=== PATIENT | female | born 1950 | race Caucasian/White ===

== ENCOUNTER 2018-07-03 05:52 | Observation (INO) | payer OTHER, MEDICARE ==
[~2018-07-03] VITALS: Ht 157.5 cm; Wt 94.3 kg
--- NOTE | 2018-07-03 06:16 | ED CARDIAC/CP/PALPITATIONS ---
History of Present Illness General Chief Complaint: Chest Pain Stated Complaint: "I'M HAVING CHEST PAIN SINCE 0400AM" Source: patient, family, old records Exam Limitations: no limitations Vital Signs & Intake/Output Vital Signs & Intake/Output Vital Signs Date Time Temp Pulse Resp B/P B/P Pulse O2 O2 Flow FiO2 Mean Ox Delivery Rate 07/03 0703 59 107/55 07/03 0636 64 121/73 07/03 0558 97.9 62 18 183/86 97 Room Air Allergies Coded Allergies: clarithromycin (From BIAXIN) (Severe, KIDNEY FAILURE 07/03/18) Triage Note: PT REPORTS MID STERNAL CHEST HEAVINESS THAT STARTED AT 4AM. "FEELS LIKE SOMEONE SITTING ON MY CHEST". DENIES ANY SOB, DENIES PAIN RADIATING ANYWHERE. NONTENDER ON PALPATION. DENIES NAUSEA Triage Nurses Notes Reviewed? yes Onset: Just prior to arrival Duration: hour(s):, constant, continues in ED Timing: recent history Quality/Severity: severe, pressure Location: central Radiation: no radiation Activities at Onset: sleep Prior Chest Pain/Card Workup: no prior cardiac workup Nitro Today/Relief: 0.4 mg x 1, provided by ED Aspirin Today: provided at home, 81 mg x 8 Associated Symptoms: shortness of breath LMP (ages 10-50): post menopausal : No Patient currently breastfeeds: No HPI: 2 hours prior to admission patient awoke with heavy severe substernal chest pain described as an ankle on her chest with mild shortness of breath. She denies fever chills nausea vomiting diarrhea abdominal pain headache dysuria rash bleeding previous episodes. Past History Travel History Traveled to [place] past 21 day No Medical History Any Pertinent Medical History? see below for history Neurological: NONE EENT: NONE Cardiovascular: NONE Respiratory: NONE Gastrointestinal: NONE Hepatic: NONE Renal: NONE Musculoskeletal: NONE Psychiatric: NONE Endocrine: diabetes Blood Disorders: NONE Cancer(s): UTERINE CANCER Surgical History Surgical History: non-contributory Psychosocial History What is your primary language Russian Tobacco Use: Never used ETOH Use: denies use Family History Hx Contributory? Yes Review of Systems Review of Systems Constitutional: Reports: no symptoms. EENTM: Reports: no symptoms. Respiratory: Reports: see HPI, short of breath. Cardiovascular: Reports: see HPI, chest pain. GI: Reports: no symptoms. Genitourinary: Reports: no symptoms. Musculoskeletal: Reports: no symptoms. Skin: Reports: no symptoms. Neurological/Psychological: Reports: no symptoms. Hematologic/Endocrine: Reports: no symptoms. Immunologic/Allergic: Reports: no symptoms. All Other Systems: Reviewed and Negative Physical Exam Physical Exam General Appearance: well developed/nourished, alert, awake, anxious, moderate distress, obese Head: atraumatic, normal appearance Eyes: Bilateral: normal appearance, PERRL, EOMI. Ears, Nose, Throat: normal pharynx, normal ENT inspection, hearing grossly normal Neck: normal inspection, supple, full range of motion, no midline tenderness Respiratory: normal breath sounds, chest non-tender, no respiratory distress, quiet respiration, lungs clear Cardiovascular: regular rate/rhythm, normal peripheral pulses, norml femoral pulses equa Peripheral Pulses: 4+ carotid (R), 4+ carotid (L) Gastrointestinal: normal bowel sounds, soft, non-tender, no organomegaly Back: normal inspection, normal range of motion Extremities: normal inspection, normal capillary refill, normal range of motion, no edema Neurologic/Psych: no motor/sensory deficits, awake, alert, oriented x 3, normal gait, normal mood/affect, quiller hand II-XII nml as tested Reflexes: 2+: bicep (R), bicep (L). Skin: intact, normal color, warm/dry Lymphatic: no anterior cervical khloe Core Measures ACS in differential dx? Yes No ASA d/t Pharmacological CI CVA/TIA Diagnosis No Sepsis Present: No Sepsis Focused Exam Completed? No Progress Differential Diagnosis: costochondritis, hyperkalemia, hypovolemia, pneumonia Plan of Care: Orders Procedure Date/time Status Add-on Test (ER Only) 07/03 649 Active B-TYPE NATRIURETIC PEP (BNP) 07/03 617 Active TROPONIN LEVEL 07/03 606 Active MAGNESIUM 07/03 606 Active COMPREHENSIVE METABOLIC PANEL 07/03 606 Active CBC WITHOUT DIFFERENTIAL 07/03 606 Complete EKG 07/03 554 Active Current Medications Sig/Tru Start time Last Medication Dose Stop Time Status Admin Nitroglycerin 1 GM ONCE ONE 07/03 0645 UNVr 07/03 (Nitro-Bid) 07/03 646 0649 Nitroglycerin 0.4 MG ONCE ONE 07/03 0615 UNVr 07/03 (Nitrostat) 07/03 0616 06 Laboratory Tests 07/03/18 0617: Anion Gap 10, Estimated GFR > 60, BUN/Creatinine Ratio 32.5 H, Glucose 294 H, Calcium 9.3, Magnesium 1.5 L, Total Bilirubin 0.6, AST 21, ALT 29, Alkaline Phosphatase 127 H, Troponin I < 0.01, Ybb-[id number]-Lhmtukveofr Pept Pending, Total Protein 6.3, Albumin 3.5, Globulin 2.8, Albumin/Globulin Ratio 1.3, CBC w Diff NO MAN DIFF REQ, RBC 4.74, MCV 82.8, MCH 27.6, MCHC 33.4, RDW 13.4, MPV 8.1, Gran % 72.0, Lymphocytes % 20.2 L, Monocytes % 5.4, Eosinophils % 2.0, Basophils % 0.4, Absolute Granulocytes 6.0, Absolute Lymphocytes 1.7, Absolute Monocytes 0.4, Absolute Eosinophils 0.2, Absolute Basophils 0 Diagnostic Imaging: Viewed by Me: Radiology Read. Discussed w/RAD: Radiology Read. Radiology Impression: vascular congestion Initial ED EKG: normal axis, normal intervals, normal p-waves, normal QRS complex, normal sinus rhythm, no ST T wave changes Rhythm Strip: normal sinus rhythm Departure Departure Time of Disposition: 704 Disposition: STILL A PATIENT Condition: Stable Clinical Impression Primary Impression: Chest pain syndrome Referrals: Trevon FAJARDO,Merrill Clark (PCP/Family) Departure Forms: Customer Survey General Discharge Information Admission Note Documentation of Exam: Documentation of any treatments & extenuating circumstances including Concerns Regarding Discharge (functional status, medication knowledge or non-compliance, living conditions, etc.) that warrant an admission rather than observation: Observation Note Spoke With: Jerrod FAJARDO,Twan Physician Advisor Notified: DEREK HAZEL DO Place Patient In: Non-ED OBS Care Area Rationale for Observation: My rational for observation is as follows serial lab exam serial EKG medication adjustment blood sugar control endocrinology evaluation cardiology evaluation continuing care discharge planning. Critical Care Note Critical Care Note Critical Care Time: 30-74 min (35)
[2018-07-03 06:39] LABS: ABSOLUTE BASOPHIL COUNT 0 /CUMM (0.0-0.2); ABSOLUTE EOSINOPHIL COUNT 0.2 /CUMM (0.0-0.7); ABSOLUTE LYMPH COUNT 1.7 /CUMM (1.2-3.4); ABSOLUTE MONOCYTE COUNT 0.4 /CUMM (0.10-0.60); BASOPHIL % 0.4 % (0.0-2.0); HEMATOCRIT 39.2 % (37-47); MEAN CORPUSCULAR HGB 27.6 PG (27.0-31.0); MEAN CORPUSCULAR HGB CONC 33.4 G/DL (33.0-37.0); MEAN CORPUSCULAR VOLUME 82.8 FL (81.0-99.0); MEAN PLATELET VOLUME 8.1 FL (7.4-10.4); PLATELET COUNT 203 /CUMM (130-400); RBC DISTRIBUTION WIDTH 13.4 % (11.5-14.5); RED BLOOD CELL CT 4.74 /CUMM (4.20-5.40); WHITE BLOOD CELL COUNT 8.3 /CUMM (4.8-10.8)
--- NOTE | 2018-07-03 06:58 | RADIOLOGY REPORT ---
EXAMINATION: XR PORTABLE CHEST CLINICAL INFORMATION: Chest pain COMPARISON: None TECHNIQUE: Portable AP portable view of the chest was obtained. FINDINGS: No significant abnormality is noted involving the heart, lungs, mediastinum, bony thorax or soft tissues. IMPRESSION: No significant acute parenchymal disease identified.
--- NOTE | 2018-07-03 08:31 | History & Physical ---
Dex Cobian MD 07/03/18 0809: General Information and HPI MD Statement: I have seen and personally examined CECIL VALENTE and documented this H&P. The patient is a 67 year old F who presented with a patient stated chief complaint of [chest pain]. Source of Information: patient Exam Limitations: no limitations History of Present Illness: Patient is a 67-year-old female presented with chief complaints of chest pain since 4a.m. in the morning. Patient is a very poor historian does not know about the past medical problem. He does not follow any PCP, sometimes she saw Dr. Lazcano at [facility], and sometimes Dr. Hale at [facility]. She described the chest pain as chest heaviness, feels like someone is sitting on her chest, located at middle part of the sternum, constant, does not radiate. She was sitting on the chair and watching the TV.She took 8 tablets of baby aspirin at the home.Denies associated shortness of breath, nausea, diaphoresis, radiation of the pain, headache, dizziness, abdominal distention, dyspepsia, dysuria, constipation, diarrhea. After she was given sublingual nitroglycerin, aspirin in the emergencY,her chest pain got relieved after getting the nitro. According to her she is pretty active, yesterday she went to the [facility] and did not had any episode of shortness of breath or chest pain. 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 Sinusitis. Of note she has arthritis but does not take any pain medication. PMH - Obesity History of hypertriglyceridemia-not on any medication Type 2 diabetes -since 10 year, HbA1c -10.9(06/24/2017); on Levemir -6 - 8 units per day; does not follow any sand digger History of vitamin D deficiency -13.2 (06/24/2017) History of osteopenia -taking calcium preparation, not vitamin D Severe osteoarthrosis at the patellofemoral joint of right knee history of uterine cancer -status post hysterectomy, chemotherapy at [facility] Allergies-clarithromycin(had renal failure) medications -Levemir Allergies/Medications Allergies: Coded Allergies: clarithromycin (From BIAXIN) (Severe, KIDNEY FAILURE 07/03/18) Observation Initial Note - I have personally examined CECIL VALENTE on 07/03/18 at 0822. The disposition of CECIL VALENTE is uncertain at this time and before a determination can be made, she requires a period of observation for the following reasons [chest pain] Past History Travel History Traveled to [place] past 21 day No Medical History Neurological: NONE EENT: NONE Cardiovascular: NONE Respiratory: NONE Gastrointestinal: NONE Hepatic: NONE Renal: NONE Musculoskeletal: NONE Psychiatric: NONE Endocrine: diabetes Blood Disorders: NONE Cancer(s): UTERINE CANCER Surgical History Surgical History: non-contributory Past Family/Social History Psychosocial History ETOH Use: denies use Exam & Diagnostic Data Last 24 Hrs of Vital Signs/I&O Vital Signs Date Time Temp Pulse Resp B/P B/P Pulse O2 O2 Flow FiO2 Mean Ox Delivery Rate 07/03 0703 59 107/55 07/03 0636 64 121/73 07/03 0558 97.9 62 18 183/86 97 Room Air Physical Exam General Appearance Alert, Oriented X3, Cooperative, No Acute Distress Cardiovascular Normal S1, Normal S2 Lungs Clear to Auscultation, Normal Air Movement Abdomen Soft, No Tenderness Extremities No Clubbing, No Cyanosis, No Edema Last 24 Hrs of Labs/Manuel: Laboratory Tests 07/03/18 0617: Anion Gap 10, Estimated GFR > 60, BUN/Creatinine Ratio 32.5 H, Glucose 294 H, Calcium 9.3, Magnesium 1.5 L, Total Bilirubin 0.6, AST 21, ALT 29, Alkaline Phosphatase 127 H, Troponin I < 0.01, Bna-L-Ckyespewurq Pept 129 H, Total Protein 6.3, Albumin 3.5, Globulin 2.8, Albumin/Globulin Ratio 1.3, CBC w Diff NO MAN DIFF REQ, RBC 4.74, MCV 82.8, MCH 27.6, MCHC 33.4, RDW 13.4, MPV 8.1, Gran % 72.0, Lymphocytes % 20.2 L, Monocytes % 5.4, Eosinophils % 2.0, Basophils % 0.4, Absolute Granulocytes 6.0, Absolute Lymphocytes 1.7, Absolute Monocytes 0.4, Absolute Eosinophils 0.2, Absolute Basophils 0 Diagnostic Data EKG Results Normal sinus rhythm, inverted T-wave in lead III, QRS complex in 3, aVF, V1 to V3 CXR Results No any cardiopulmonary abnormality Assessment/Plan Assessment: Vital signs at the time of admission-temperature 97.9, pulse 62, respiratory rate 18, blood pressure 183/86, SPO2 97% on room air. Blood workup -was normal. Hemoglobin 13.1, hematocrit 39.2, platelet count 203, granulocyte 72, serum sodium 133, potassium 4.8, chloride 99, anion gap 10, BUN 13, creatinine 0.4, glucose 294, calcium 9.3, magnesium 1.5, total bilirubin 0.6, AST 21, ALT 29, alkaline phosphatase 127, proBNP 129. Chest x-ray-no significant acute parenchymal disease. Assessment and plan - Typical chest pain, located in the center of the chest and relieved by nitroglycerin, needed further evaluation to rule out acute coronary event - UA * Morning we will keep the patient under observation * We will continue telemetry monitoring * We will do serial troponins and EKGs 12:00, 6:00PM * we will follow cardiology recommendation * Vitals every shift * Keep head end of the bed elevated * Injection pantoprazole 40 mg IV OD * follow-up echocardiogram [id number]; corrected sodium is 136 - * We will follow her regularly, and correct the glucose Hypomagnesemia-1.5 * We will give Magnesium -65 mg twice daily and 1 g IV. * We will recheck tomorrow History of hypertriglyceridemia- ASCVD score -16.3%. Risk of cardiovascular event (coronary or stroke or non-fatal TX or stroke) in next 10 years. * We will recheck Lipid profile. * We will start patient on tablet atorvastatin 80 mg daily as her ASCVD score is 16.3. * If needed then we will start patient on fenofibric. Type 2 diabetes -On Levemir, HbA1c -10.9(06/24/2017)- * Fingerstick 3 times daily at at bedtime * NovoLog according to the sliding scale DVT prophylaxis-ALPS/heparin CODE STATUS-full code Diet-heart healthy diet, consistent carbohydrate diet 2 As Ranked By This Provider Problem List: 1. Chest pain syndrome Core Measures/Misc (08/15) Acute Coronary Syndrome ACS Diagnosis: No Congestive Heart Failure Congestive Heart Failure Diagnosis No Cerebrovascular Accident CVA/TIA Diagnosis: No VTE (View Protocol) VTE Risk Factors Age>40 No Mechanical VTE Prophylaxis d/t N/A MechProphylax Ordered No VTE Pharm Prophylaxis d/t NA PharmProphylax ordered Sepsis (View protocol) Sepsis Present: No If YES complete Sepsis Event Note If YES complete Sepsis Event Note Twan Elder 07/03/18 1126: General Information and HPI Allergies/Medications Home Med list Aspirin (Aspirin*) 325 MG TABLET 325 MG PO DAILY ACS Atorvastatin Calcium 40 MG TABLET 1 TAB PO DAILY high lipid Insulin Detemir (Levemir) 100 UNIT/ML VIAL 8 UNITS SC BID Diabetes Metoprolol Tartrate 25 MG TABLET 0.5 TAB PO BID ACS Nitroglycerin (Nitro-Bid) 2 % OINT...G. 0.5 GM TOP Q6 PRN CHest pain Review of Systems Review of Systems Constitutional: Denies: no symptoms. Core Measures/Misc (08/15) Sepsis (View protocol) If YES complete Sepsis Event Note If YES complete Sepsis Event Note Attending MD Review Statement Attending Statement Attending MD Statement: examined this patient, discuss w/resident/PA/JANITOR HELPER, agreed w/resident/PA/JANITOR HELPER, discussed with family, reviewed EMR data (avail), discussed with nursing, discussed with case mgmt, reviewed images, amended to note Attending Assessment/Plan: 67 o/f retrosternal chest pain at rest with pmh of DM on inulsin dependent, hyperlipidemia, as above is placed in telemetry for serial cardiac enzymes for unstable angina like symptoms. Patient chest pain relieved with nitroglycerin. Troponin is negative. EKG non specific. Patient is started on ASA/NTG/ atorvastatin/ b blockers. Anticoagulation as per cardiology. ECHO, obtain serial cardiac enzymes. Stress test vvs cardiac catheterization as per cardiology. GI/ dvt Prophylaxis Full code.
[2018-07-03 10:45] VITALS: BP 152/82
--- NOTE | 2018-07-03 13:54 | Cons- Cardiology ---
General Information and HPI Consulting Request Date of Consult: 07/03/18 Requested By: Twan Elder MD Reason for Consult: Chest pain History of Present Illness: The patient is a 67-year-old female with history of type II diabetes mellitus who presents with complaint of chest discomfort. She awoke at 4:00 in the morning with dull substernal chest heaviness which was a 2 out of 10 in severity and did not radiate. The discomfort was nonexertional, and was nonradiating. The pain resolved when she received several nitroglycerin in the emergency department after approximately 90 minutes. She is now pain-free. No palpitations. No diaphoresis. No nausea or vomiting. No lightheadedness or dizziness. No prior history of chest discomfort. Allergies/Medications Allergies: Coded Allergies: clarithromycin (From [employer]) (Severe, KIDNEY FAILURE 07/03/18) Home Med List: Aspirin (Aspirin*) 325 MG TABLET 325 MG PO DAILY ACS Atorvastatin Calcium 40 MG TABLET 1 TAB PO DAILY high lipid Insulin Detemir (Levemir) 100 UNIT/ML VIAL 8 UNITS SC BID Diabetes Metoprolol Tartrate 25 MG TABLET 0.5 TAB PO BID ACS Nitroglycerin (Nitro-Bid) 2 % OINT...G. 0.5 GM TOP Q6 PRN CHest pain Current Medications: Current Medications Sig/Tru Start time Last Medication Dose Route Stop Time Status Admin Aspirin 325 MG DAILY 07/04 0900 AC PO Atorvastatin Calcium 80 MG 1700 07/03 1700 AC PO Diphenhydramine HCl 1 ELISEO TID 07/03 1400 AC TOP Enoxaparin Sodium 40 MG DAILY 07/03 0900 AC 07/03 SC 1209 Insulin Aspart 0 TIDAC 07/03 1200 AC 07/03 SC 1158 Magnesium Chloride 64 MG BID 07/03 0939 AC 07/03 PO 1216 Magnesium Sulfate 1 GM ONCE ONE 07/03 0945 DC 07/03 Dextrose/Water 100 ML IV 07/03 1344 1215 Nitroglycerin 0.5 GM Q6 07/03 1200 AC 07/03 TOP 1206 Nitroglycerin 0 .STK-MED ONE 07/03 0646 DC TOP Nitroglycerin 1 GM ONCE ONE 07/03 0645 DC 07/03 TOP 07/03 0646 0649 Nitroglycerin 0.4 MG ONCE ONE 07/03 0615 DC 07/03 SL 07/03 0616 0623 Pantoprazole Sodium 40 MG DAILY 07/03 0900 AC 07/03 IV 1200 Review of Systems Review of Systems: No rash. No tremor. No fever. No chills. All other systems were reviewed, and were noted to be negative. 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 Surgical History Surgical History: non-contributory Family History Relations & Conditions If Any: MOTHER Stroke Psychosocial History Smoking Status: Never Smoked ETOH Use: denies use Exam & Diagnostic Data Vital Signs and I&O Vital Signs Date Time Temp Pulse Resp B/P B/P Pulse O2 O2 Flow FiO2 Mean Ox Delivery Rate 07/03 1045 97.7 76 20 152/82 96 Room Air 07/03 1002 97.2 77 18 142/72 98 Room Air 07/03 0852 97.1 84 18 136/74 97 Room Air 07/03 0703 59 107/55 07/03 0636 64 121/73 07/03 0558 97.9 62 18 183/86 97 Room Air Intake & Output 07/03 1600 07/03 0000 07/02 1600 07/02 0000 Intake Total Output Total Balance Patient 199 lb Weight Physical Exam: Gen: The patient is in no acute distress HEENT: Normal nose, ears, and oropharynx. Pupils equal bilaterally. Conjunctiva normal. Neck: Supple with no JVD, no masses, and no thyromegaly Lungs: Clear to auscultation with normal respiratory effort Heart: RRR, S1, S2, no murmurs. No peripheral edema, 2+ pulses in the lower extremities bilaterally Abdomen: Soft, nontender, no masses. No hepatomegaly. No splenomegaly Extremities: No clubbing or cyanosis. Normal muscle strength in the upper and lower extremities Skin: Normal skin turgor with no skin ulcers or lesions noted. Neuro: Cranial nerves intact. Sensation intact Psych: Alert and oriented x 3 with appropriate affect Labs/Manuel Results: Laboratory Tests 07/03 07/03 1255 0617 Chemistry Sodium (137 - 145 mmol/L) 133 L Potassium (3.5 - 5.1 mmol/L) 4.3 Chloride (98 - 107 mmol/L) 99 Carbon Dioxide (22 - 30 mmol/L) 23 Anion Gap (5 - 16) 10 BUN (7 - 17 mg/dL) 13 Creatinine (0.5 - 1.0 mg/dL) 0.4 L Estimated GFR (>60 ml/min) > 60 BUN/Creatinine Ratio (7 - 25 %) 32.5 H Glucose (65 - 99 mg/dL) 294 H Hemoglobin A1c (4.2 - 5.8 %) Pending Calcium (8.4 - 10.2 mg/dL) 9.3 Magnesium (1.6 - 2.3 mg/dL) 1.5 L Total Bilirubin (0.2 - 1.3 mg/dL) 0.6 AST (14 - 36 U/L) 21 ALT (9 - 52 U/L) 29 Alkaline Phosphatase (<127 U/L) 127 H Troponin I (< 0.11 ng/ml) Pending < 0.01 Zvi-S-Nbfoziyrnzf Pept (<125 pg/mL) 129 H Total Protein (6.3 - 8.2 g/dL) 6.3 Albumin (3.5 - 5.0 g/dL) 3.5 Globulin (1.9 - 4.2 gm/dL) 2.8 Albumin/Globulin Ratio (1.1 - 2.2 %) 1.3 Triglycerides (<150 mg/dL) 218 H Cholesterol (<200 MG/DL) 171 LDL Cholesterol, Calc (65 - 129 mg/dL) 87 HDL Cholesterol (40 - 60 mg/dL) 41 Cholesterol/HDL Ratio (0.00 - 4.23 %) 4 Hematology CBC w Diff NO MAN DIFF REQ WBC (4.8 - 10.8 /CUMM) 8.3 RBC (4.20 - 5.40 /CUMM) 4.74 Hgb (12.0 - 16.0 G/DL) 13.1 Hct (37 - 47 %) 39.2 MCV (81.0 - 99.0 FL) 82.8 MCH (27.0 - 31.0 PG) 27.6 MCHC (33.0 - 37.0 G/DL) 33.4 RDW (11.5 - 14.5 %) 13.4 Plt Count (130 - 400 /CUMM) 203 MPV (7.4 - 10.4 FL) 8.1 Gran % (42.2 - 75.2 %) 72.0 Lymphocytes % (20.5 - 51.1 %) 20.2 L Monocytes % (1.7 - 9.3 %) 5.4 Eosinophils % (0 - 5 %) 2.0 Basophils % (0.0 - 2.0 %) 0.4 Absolute Granulocytes (1.4 - 6.5 /CUMM) 6.0 Absolute Lymphocytes (1.2 - 3.4 /CUMM) 1.7 Absolute Monocytes (0.10 - 0.60 /CUMM) 0.4 Absolute Eosinophils (0.0 - 0.7 /CUMM) 0.2 Absolute Basophils (0.0 - 0.2 /CUMM) 0 Diagnostic Data EKG Results EKG tracing is independently reviewed, and reveals normal sinus rhythm at 82, inferior infarct age undetermined, poor R-wave progression CXR Results Negative Assessment/Plan Assessment/Plan The patient is a 67-year-old female with history of diabetes mellitus presenting with chest discomfort which resolved with nitroglycerin. EKG is suggestive of possible old inferior infarct. She is now pain-free. Blood pressure is noted to be mildly elevated. Recommendations: * Continue aspirin * Continue nitroglycerin paste * Would start metoprolol 12.5 mg p.o. twice daily given chest discomfort and elevated blood pressure * Echocardiogram * Check serial troponin to rule out myocardial infarction * If myocardial infarction is ruled out then I recommend pharmacologic nuclear stress test given the high risk for ischemic heart disease. This will be arranged for tomorrow in the hospital if possible. Consult Acknowledgment - Thank you for your consult request.
[2018-07-03 14:28] VITALS: BP 132/78
[2018-07-03 22:00] VITALS: BP 124/74
[2018-07-04] VITALS: BP 156/90
[2018-07-04 06:44] VITALS: BP 128/64
--- NOTE | 2018-07-04 08:04 | PN- Housestaff ---
Clayton Vásquez 07/04/18 0803: Subjective Follow-up For: chest pain Complaints: no complaints Tele-Events Since Last Visit: none Subjective: patient denies any shortness of breath/ CP/ Palpitations. She is doing well Review of Systems Constitutional: Reports: see HPI. Objective Last 24 Hrs of Vital Signs/I&O Vital Signs Date Time Temp Pulse Resp B/P B/P Pulse O2 O2 Flow FiO2 Mean Ox Delivery Rate 07/04 1503 97.9 69 18 130/72 95 Room Air 07/04 1302 79 142/94 07/04 0644 98.4 68 18 128/64 94 Room Air 07/04 0000 78 156/90 07/03 2219 Room Air 07/03 2200 98.3 66 18 124/74 93 05 1946 73 128/72 Intake & Output 07/04 1600 07/04 0800 08 0000 Intake Total 650 0 240 Output Total Balance 650 0 240 Intake, IV 150 Intake, Oral 500 0 240 Number 1 0 Bowel Movements Patient 208 lb Weight Physical Exam General Appearance: Alert, Oriented X3, Cooperative, No Acute Distress Cardiovascular: Regular Rate, No Murmurs Lungs: Clear to Auscultation, Normal Air Movement Abdomen: Normal Bowel Sounds, Soft, No Tenderness, No Hepatospenomegaly, No Masses Neurological: Normal Speech, Strength at 5/5 X4 Ext, Normal Tone, Sensation Intact Extremities: No Clubbing, No Cyanosis, No Edema, Normal Pulses, No Tenderness/ Swelling Assessment/Plan Assessment: SHe is 67 y/o F with pmh sig for diabetes, on telemetry observation with chest pain. Patient ruled out for acute coronary syndrome with negative troponins. She underwent first part of the stress test and will be going for the second part this afternoon. Problem List: 1. ACS (acute coronary syndrome) EKG was suggestive of possibl;e old infarct. -Continue aspirin, nitroglycerin paste - metoprolol 12.5 mg p.o. twice daily started as per Cardiology cpnsult , given chest discomfort and elevated blood pressure Echocardiogram - serial troponin - negative - Patient had a pharmacologic nuclear stress test today. Reports awaited. If no ischemia is seen on stress test then the patient may be discharged to home at the end of the day today. Follow up in the office in 2 weeks, and call with any further chest pain 2. Diabetes On Insulin Levemir, Novolog Diabetes teaching and nutrition counselling tomorrow Pain Ratin Pain Location: none Pain Goal: Remain pain free Pain Plan: none Tomorrow's Labs & Rationales: none Mariajose Mackenzie MD 07/04/18 1306: Attending MD Review Statement Attending Statement Attending MD Statement: examined this patient, discuss w/resident/PA/GAMING TABLE OPERATOR, agreed w/resident/PA/GAMING TABLE OPERATOR, reviewed EMR data (avail), discussed with nursing, discussed with case mgmt, reviewed images, amended to note Attending Assessment/Plan: Patient seen and examined, she came back from her stress test first part. She currently denies any shortness of breath or chest pain. vss. on exam; aox3, nad. cv; s1,s2, rrr resp; clear abd; soft, nt, bs+ ext; no edema Laboratory Tests 07/04 07/03 0607 1735 Chemistry Sodium (137 - 145 mmol/L) 134 L Potassium (3.5 - 5.1 mmol/L) 4.2 Chloride (98 - 107 mmol/L) 100 Carbon Dioxide (22 - 30 mmol/L) 26 Anion Gap (5 - 16) 8 BUN (7 - 17 mg/dL) 16 Creatinine (0.5 - 1.0 mg/dL) 0.5 Estimated GFR (>60 ml/min) > 60 BUN/Creatinine Ratio (7 - 25 %) 32.0 H Magnesium (1.6 - 2.3 mg/dL) 1.7 Troponin I (< 0.11 ng/ml) < 0.01 A/P; 67 y/o F with pmh sig for diabetes, on telemetry observation with chest pain. Patient ruled out for acute coronary syndrome with negative troponins. She underwent first part of the stress test and will be going for the second part this afternoon. She was started on aspirin, beta-merritt and nitrates. She is noncompliant with her insulin and therefore her hemoglobin A1c is high. She is also having hypoglycemia while inpatient. Will follow up on the second part of the stress test. Please obtain nutrition consult to better control her diabetes. Will follow up on the results of the stress test and her disposition is pending. She is on Lovenox for DVT prophylaxis.
--- NOTE | 2018-07-04 10:30 | PN- Cardiology ---
Subjective Subjective: The patient reports that she is feeling better. No further chest pain. No shortness of breath. No palpitations. No diaphoresis Objective Vital Signs and I&Os Vital Signs Date Time Temp Pulse Resp B/P B/P Pulse O2 O2 Flow FiO2 Mean Ox Delivery Rate 07/04 0644 98.4 68 18 128/64 94 Room Air / 0000 78 156/90 / 2219 Room Air 07/03 2200 98.3 66 18 124/74 93 07/03 1946 73 128/72 07/03 1428 98.1 76 20 132/78 93 Room Air 07/03 1045 97.7 76 20 152/82 96 Room Air Intake & Output 07/04 0000 07/03 1600 07/03 0000 Intake Total 0 240 340 Output Total Balance 0 240 340 Intake, IV 100 Intake, Oral 0 240 240 Number 0 Bowel Movements Patient 208 lb 199 lb Weight Physical Exam: Gen: The patient is in no acute distress HEENT: Normal nose, ears, and oropharynx. Pupils equal bilaterally. Conjunctiva normal. Neck: Supple with no JVD, no masses, and no thyromegaly Lungs: Clear to auscultation with normal respiratory effort Heart: RRR, S1, S2, no murmurs. No peripheral edema, 2+ pulses in the lower extremities bilaterally Abdomen: Soft, nontender, no masses. No hepatomegaly. No splenomegaly Extremities: No clubbing or cyanosis. Normal muscle strength in the upper and lower extremities Skin: Normal skin turgor with no skin ulcers or lesions noted. Neuro: Cranial nerves intact. Sensation intact Current Medications: Current Medications Sig/Tru Start time Last Medication Dose Route Stop Time Status Admin Aspirin 325 MG DAILY 07/04 900 AC PO Atorvastatin Calcium 80 MG 1700 07/03 1700 AC 07/03 PO 1717 Diphenhydramine HCl 1 ELISEO TID 07/03 1400 AC 07/04 TOP 0833 Dipyridamole 55 MG ONE ONE 07/04 1100 AC Dextrose/Water 29 ML IV 07/04 1101 Enoxaparin Sodium 40 MG DAILY 07/03 900 AC 07/04 SC 0818 Fenofibrate 48 MG DAILY 07/04 900 AC PO Insulin Aspart 0 TIDAC 07/04 1200 AC 07/04 SC 0819 Insulin Aspart 0 TIDAC 07/03 1200 DC 07/03 SC 1717 Insulin Detemir 5 UNITS BID 07/04 900 [facility] Insulin Human Regular 0 Q6 07/04 0755 LA SC Magnesium Chloride 64 MG BID 07/03 0939 AC 07/03 PO 194 Magnesium Sulfate 1 GM ONCE ONE 07/03 0945 DC 07/03 Dextrose/Water 100 ML IV 07/03 1344 1215 Metoprolol Tartrate 12.5 MG BID 07/03 2100 AC 07/03 PO 1946 Nitroglycerin 0.5 GM Q6 07/03 1200 07/03 TOP 2347 Pantoprazole Sodium 40 MG DAILY 07/03 900 AC 07/04 IV 0818 Sodium Chloride 1,000 ML Q20H 07/04 08 AC 07/04 IV 0826 Sodium Chloride 2,831.266 ML ONCE ONE 07/04 800 CAN IV 07/04 08 Results Last 48 Hrs of Labs/Mics: Laboratory Tests 07/04/18 0607: Anion Gap 8, Estimated GFR > 60, BUN/Creatinine Ratio 32.0 H, Magnesium 1.7 07/03/18 1735: Troponin I < 0.01 07/03/18 1255: Troponin I < 0.01 07/03/18 0617: Anion Gap 10, Estimated GFR > 60, BUN/Creatinine Ratio 32.5 H, Glucose 294 H, Hemoglobin A1c 11.6 H, Calcium 9.3, Magnesium 1.5 L, Total Bilirubin 0.6, AST 21, ALT 29, Alkaline Phosphatase 127 H, Troponin I < 0.01, Qjz-Z-Rfyskvysult Pept 129 H, Total Protein 6.3, Albumin 3.5, Globulin 2.8, Albumin/Globulin Ratio 1.3, Triglycerides 218 H, Cholesterol 171, LDL Cholesterol, Calc 87, HDL Cholesterol 41, Cholesterol/HDL Ratio 4, CBC w Diff NO MAN DIFF REQ, RBC 4.74, MCV 82.8, MCH 27.6, MCHC 33.4, RDW 13.4, MPV 8.1, Gran % 72.0, Lymphocytes % 20.2 L, Monocytes % 5.4, Eosinophils % 2.0, Basophils % 0.4, Absolute Granulocytes 6.0, Absolute Lymphocytes 1.7, Absolute Monocytes 0.4, Absolute Eosinophils 0.2, Absolute Basophils 0 Assessment/Plan Assessment/Plan Assessment: 1. Diabetes mellitus 2. Chest pain, ruled out for myocardial infarct 3. 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 Hypertension Plan: * Continue current medication * Persantine sestamibi stress test scheduled for today * If no ischemia is seen on stress test then the patient may be discharged to home at the end of the day today. * Follow up in the office in 2 weeks, and call with any further chest pain Continue telemetry? Yes
[2018-07-04] MEDS ORDERED: ASPIRIN325 M2 PO (12:46)
[2018-07-04] MEDS ORDERED: TRICOR48 M1 PO (12:46)
[2018-07-04] MEDS ORDERED: NITRO-BID1 GM TOP (12:46)
[2018-07-04] MEDS ORDERED: METOPROLOL TART25 M1 PO (12:46)
[2018-07-04] MEDS ORDERED: ATORVASTATIN CA40 M1 PO (12:46)
--- NOTE | 2018-07-04 12:48 | Patient Discharge Instructions ---
Discharge Instructions General Discharge Information You were seen/treated for: For chest pain, Special Instructions: We are transferring patient to [facility], for coronary angiogram. We advised her to follow-up with the PCP after the procedure within a week of discharge. We also referred her to quality rep Dr. christine for further evaluation and management of uncontrolled diabetes. Diet Recommended Diet: Diabetic Activity Full Activity/No Limits: No Activity Self Limited: Yes ( TOLERATED) Acute Coronary Syndrome Inclusion Criteria At DC or during hospital stay patient has or had the following: ACS DIAGNOSIS Yes Discharge Core Measures Meds if any: Prescribed or Continued at Discharge Aspirin Yes Beta-Brianna No Statin Yes Meds if any: NOT Prescribed or Continued at Discharge Congestive Heart Failure Inclusion Criteria At DC or during hospital stay patient has or had the following: CHF DIAGNOSIS No Discharge Core Measures Meds if any: Prescribed or Continued at Discharge Meds if any: NOT Prescribed or Continued at Discharge Cerebrovascular accident Inclusion Criteria At DC or during hospital stay patient has or had the following: CVA/TIA Diagnosis No Discharge Core Measures Meds if any: Prescribed or Continued at Discharge Meds if any: NOT Prescribed or Continued at Discharge Venous thromboembolism Inclusion Criteria VTE Diagnosis No VTE Type NONE VTE Confirmed by (Test) NONE Discharge Core Measures - Per Current guidelines, there needs to be overlap - treatment for the first 5 days of Warfarin therapy. - If discharged on Warfarin prior to 5 days of - overlap therapy, the patient will need to be - assessed for post discharge needs including - *Post discharge parental anticoagulation - *Warfarin and/or parental anticoagulation education - *Follow up date to check INR post discharge At least 5 days overlap therapy as Inpatient No Meds if any: Prescribed or Continued at Discharge Note: Overlap Therapy is Warfarin and Anticoagulant Meds if any: NOT Prescribed or Continued at Discharge
--- NOTE | 2018-07-04 12:55 | IV DIPYRIDAMOLE NUCLEAR STRESS ---
Clinical Diagnosis: Angina Lead Caregiver: Toño Hernandez Clinical Diagnosis: Chest Pain IV DIPYRIDAMOLE INFUSED: 55 mg IV THEOPHYLLINE INFUSED: 50 mL PATIENT WEIGHT: 208 lbs INTERPRETATION: The patient's baseline EKG showed normal sinus rhythm at 76 BPM. Baseline B/P 110/80. The patient received 55 mg of dipyridamole infused intravenously over a 4 minute period. TC99M Myoview was injected after dipyridamole infusion. The patient complained of chest pressure. There were no EKG changes seen following pharmacologic infusion. Arrhythmias: IMPRESSION: The test was supervised by the interpreting Gas Adjuster, who was in attendance during the entire test. No EKG evidence of stress induced myocardial ischemia. See separately dictated Nuclear Report.
[2018-07-04 15:03] VITALS: BP 130/72
[2018-07-04] MEDS ORDERED: LEVEMIR100 UNIT/1 SC (15:59)
--- NOTE | 2018-07-04 17:12 | NUCLEAR MEDICINE REPORT ---
EXAMINATION: PERSANTINE STRESS AND RESTING SPECT MYOCARDIAL PERFUSION IMAGING STUDY WITH GATED SPECT IMAGES: CLINICAL INDICATION: Angina COMPARISON: None. TECHNIQUE: Regional myocardial perfusion was assessed using a 1 day protocol. Stress images were obtained on 07/04/2018 following the intravenous administration of 23 mCi Tc 99m Myoview. Stress consisted of 55 mg Persantine given intravenously. Rest images were obtained 07/04/2018 following the intravenous administration of 37.9 mCi Technetium 99m Myoview. Single photon emission tomographic (SPECT) images were obtained. SPECT images were acquired in a 64 x 64 matrix of 64 projections over 180 degrees. There were reconstructed into standard short axis, horizontal and vertical long axis cardiac projections. FINDINGS: The post stress images demonstrate the left ventricular chamber to be normal in size. There is mildly inhomogeneous distribution of activity in the left ventricular myocardium with decreased activity noted in the apical inferior wall of the left ventricular myocardium. The resting images also demonstrate homogeneous distribution of activity in the left ventricular myocardium, and there is improved perfusion of the apical and apical inferior wall. The images were obtained using a gated SPECT technique, which permits visualization of wall motion and calculation of the left ventricular ejection fraction. No left ventricular wall motion abnormalities are noted on either the stress or resting study. The calculated left ventricular ejection fraction is 68% on the stress study. IMPRESSION: Decreased activity apical inferior wall on stress images improves on resting images suspicious for mild stress-induced myocardial ischemia. Normal overall wall motion and normal ejection fraction.
[2018-07-04 22:24] VITALS: BP 142/80
--- NOTE | 2018-07-05 05:57 | PN- Housestaff ---
Clayton Vásquez Chesterbriangabriela 07/05/18 0551: Subjective Follow-up For: Chest pain Subjective: No complaints Review of Systems Constitutional: Reports: see HPI. Objective Last 24 Hrs of Vital Signs/I&O Vital Signs Date Time Temp Pulse Resp B/P B/P Pulse O2 O2 Flow FiO2 Mean Ox Delivery Rate 07/04 2224 97.8 68 18 142/80 97 Room Air 07/04 1503 97.9 69 18 130/72 95 Room Air 07/04 1302 79 142/94 07/04 0644 98.4 68 18 128/64 94 Room Air Intake & Output 07/05 0800 07/05 0000 07/04 1600 Intake Total 650 Output Total Balance 650 Intake, IV 150 Intake, Oral 500 Number 1 Bowel Movements Patient 208 lb Weight Weight Bed scale Measurement Method Physical Exam General Appearance: Alert, Oriented X3, Cooperative, No Acute Distress Cardiovascular: Regular Rate, No Murmurs Lungs: Clear to Auscultation, Normal Air Movement Abdomen: Normal Bowel Sounds, Soft, No Tenderness, No Hepatospenomegaly, No Masses Neurological: Normal Speech, Strength at 5/5 X4 Ext, Normal Tone, Sensation Intact Extremities: No Clubbing, No Cyanosis, No Edema, Normal Pulses, No Tenderness/ Swelling Current Medications: Current Medications Sig/Tru Start time Last Medication Dose Route Stop Time Status Admin Aspirin 325 MG DAILY 07/04 0900 DCD 07/04 PO 1302 Atorvastatin Calcium 80 MG 1700 / 1700 DCD 07/04 PO 1706 Dextrose/Sodium 1,000 ML Q20H 07/05 0845 DCD Chloride IV Diphenhydramine HCl 1 ELISEO TID 07/03 1400 DCD 07/04 TOP 2140 Enoxaparin Sodium 40 MG DAILY 07/03 09 DC 07/04 SC 0818 Fenofibrate 48 MG DAILY 07/04 0900 DCD 07/04 PO 1302 Insulin Aspart 0 TIDAC 07/04 1200 DCD 07/04 SC 1706 Insulin Detemir 8 UNITS BID 07/04 2100 DCD 07/04 SC 2139 Magnesium Chloride 64 MG BID 07/03 0939 DCD 07/04 PO 2139 Metoprolol Tartrate 12.5 MG BID 07/03 2100 DCD 07/04 PO 2139 Nitroglycerin 0.5 GM Q6 07/03 1200 DCD 07/05 TOP 0626 Pantoprazole Sodium 40 MG DAILY 07/03 0900 DCD 07/04 IV 0818 Assessment/Plan Assessment: SHe is 67 y/o F with pmh sig for diabetes, on telemetry observation with chest pain. Patient ruled out for acute coronary syndrome with negative troponins. She underwent first part of the stress test and will be going for the second part this afternoon. Problem List: 1. ACS (acute coronary syndrome) EKG was suggestive of possible old infarct. -Continue aspirin, nitroglycerin paste -metoprolol 12.5 mg p.o. twice daily started as per Cardiology cpnsult , given chest discomfort and elevated blood pressure Echocardiogram -serial troponin - negative -Patient had a nuclear stress test- .Decreased activity apical inferior wall on stress images improves on resting, Pt is NPO for angiogram. Patient is transferred to [place] for further evaluation - 2. Diabetes On Insulin Levemir, Novolog Diabetes teaching and nutrition counselling Problem List: 1. Diabetes 2. ACS (acute coronary syndrome) Pain Ratin Pain Location: chest Pain Goal: Remain pain free Pain Plan: notroglycerin Tomorrow's Labs & Rationales: none Sandra Gar MD 07/05/18 1525: Attending MD Review Statement Attending Statement Attending MD Statement: examined this patient, discuss w/resident/PA/BAR MANAGER, agreed w/resident/PA/BAR MANAGER, reviewed EMR data (avail) Attending Assessment/Plan: Positive nuclear stress test. Patient will be transferred to [facility] for cardiac cath. Will macho cardiology recommendations.
[2018-07-05 06:53] VITALS: BP 146/78
--- NOTE | 2018-07-05 08:12 | Discharge Summary ---
Visit Information Visit Dates Admission Date: 07/03/18 Discharge Date: 07/05/2018 Hospital Course Course Attending Physician: Sandra Gar MD Primary Care Physician: Trevon FAJARDO,[facility] Course: Patient is a 67-year-old obese, noncompliant female with the past medical history of uncontrolled type 2 diabetes on insulin, hypertriglyceridemia, vitamin D deficiency, osteopenia, severe osteoarthritis of right knee, history of uterine cancer in 2015 status post hysterectomy and chemotherapy presented with chief complaints of retrosternal chest pain, EKG was showing nonspecific changes including T-wave inversion in lead III. We admitted the patient into telemetry floor for ruling out acute coronary syndrome. Typical chest pain, acute coronary syndrome, stress test showed -apical inferior wall mild stress induced myocardial inferior ischemia - We admitted the patient to telemetry.Serial troponins, were negative and EKGs did not show any changes. Chest x-ray did not had any acute cardiopulmonary disease. Nuclear stress test showed apical inferior wall mildly stress-induced MS. Discussed with the baby attendant advised for possible coronary angiogram. Patient was aware of her situation, we discussed the risk and benefit for undergoing angiogram and treatment possibility in the future. We transferred her to [facility] to Dr Higgins for further evaluation including coronary angiogram and management. Uncontrolled type 2 diabetes-HbA1c 11.2. Patient is noncompliant with the diet and her work schedule does not allow her to be on healthy diet. We started her on injection Levemir 8 units twice daily. We did took nutrition consult. We also referred her to Dr. christine for further evaluation and management of diabetes. We encouraged her for regular exercise. Allergies: Coded Allergies: clarithromycin (From BIAXIN) (Severe, KIDNEY FAILURE 07/03/18) Disposition Summary Disposition Principal Diagnosis: Acute coronary syndrome, showing Decreased activity apical inferior wall on stress images improves on resting images suspicious for mild stress-induced myocardial ischemia. We transferred to higher facility/[facility] for further management including coronary angiogram Additional Diagnosis: Uncontrolled diabetes type 2, HbA1c 11.6, currently on insulin. Discharge Disposition: other general hospital Discharge Instructions General Discharge Information Code Status: Full Code Patient's Diet: You are n.p.o. for right now for possible coronary angiography at [facility], afterwards she should discuss with your baby attendant when to start, on diabetic diet. Patient's Activity: As tolerated Follow-Up Instructions/Appts: Please follow-up with your baby attendant Dr. Claros within a week of discharge. Please follow-up with your primary care provider Dr. Merrill Lester, within a week of discharge. Please take the medication as advised. Medications at Discharge Discharge Medications: Start taking the following new medications: Atorvastatin Calcium (Atorvastatin Calcium) 40 MG TABLET 1 Tablet ORAL DAILY Qty = 30 No Refills Comments: Last Taken: 07/04/18 Time: 5:00 PM Nitroglycerin (Nitro-Bid) 2 % OINT...G. 0.5 Gram On the skin EVERY SIX HOURS as needed for CHest pain Qty = 30 No Refills Comments: Last Taken: 07/05/18 Time: 6:30 PM Metoprolol Tartrate (Metoprolol Tartrate) 25 MG TABLET 0.5 Tablet ORAL TWICE DAILY Qty = 30 No Refills Comments: Last Taken: 07/04/18 Time: 9:30 PM Aspirin (Aspirin*) 325 MG TABLET 325 Milligram ORAL DAILY Qty = 30 Refills = 3 Comments: Last Taken: 07/04/18 Time: 1:OO PM Insulin Detemir (Levemir) 100 UNIT/ML VIAL 8 Units SC TWICE DAILY Qty = 1 Refills = 3 Comments: Last Taken: 07/04/18 Time: 9:30 PM Copies To: Trevon FAJARDO,Merrill Clark Attending MD Review Statement Documenting Attending: Sandra Gar MD Other Findings: This patient was discharged by Attending Physician Dr. Sandra Gar.
--- NOTE | 2018-07-05 09:34 | PN- Cardiology ---
Subjective Subjective: Feeling well. No further chest pain. No shortness of breath. No palpitations. No diaphoresis. Objective Vital Signs and I&Os Vital Signs Date Time Temp Pulse Resp B/P B/P Pulse O2 O2 Flow FiO2 Mean Ox Delivery Rate 07/05 0653 98.0 74 18 146/78 98 Room Air 07/04 2224 97.8 68 18 142/80 97 Room Air 07/04 1503 97.9 69 18 130/72 95 Room Air 07/04 1302 79 142/94 Intake & Output 07/05 1600 07/05 0807/05 0000 07/04 1600 07/04 0807/04 0000 Intake Total 650 0 240 Output Total Balance 650 0 240 Intake, IV 150 Intake, Oral 500 0 240 Number 1 0 Bowel Movements Patient 208 lb 208 lb Weight Weight Bed scale Measurement Method Physical Exam: Gen: NAD HEENT: normal Lungs: clear to auscultation, normal resp. effort Heart: RRR, S1, S2, no murmurs Abdomen: Soft, nontender, no masses Extremities: No clubbing, cyanosis, or edema. Neuro: Alert and oriented x 3, cranial nerves intact Current Medications: Current Medications Sig/Tru Start time Last Medication Dose Route Stop Time Status Admin Aspirin 325 MG DAILY 07/04 900 AC 07/04 PO 1302 Atorvastatin Calcium 80 MG 1700 07/03 1700 AC 07/04 PO 1706 Dextrose/Sodium 1,000 ML Q20H 07/05 0845 AC Chloride IV Diphenhydramine HCl 1 ELISEO TID 07/03 1400 AC 07/04 TOP 2140 Dipyridamole 55 MG ONE ONE 07/04 1100 DC Dextrose/Water 29 ML IV 07/04 1101 Enoxaparin Sodium 40 MG DAILY 07/03 900 DC 07/04 SC 0818 Fenofibrate 48 MG DAILY 07/04 900 AC 07/04 PO 1302 Insulin Aspart 0 TIDAC 07/04 1200 AC 07/04 SC 1706 Insulin Detemir 8 UNITS BID 07/04 2100 AC 07/04 SC 2139 Insulin Detemir 5 UNITS BID 07/04 900 DC 07/04 SC 0812 Magnesium Chloride 64 MG BID 07/03 0939 AC 07/04 PO 2139 Metformin HCl 500 MG 0800,1700 07/04 1700 DC PO Metoprolol Tartrate 12.5 MG BID 07/03 2100 AC 07/04 PO 2139 Nitroglycerin 0.5 GM Q6 07/03 1200 AC 07/05 TOP 0626 Pantoprazole Sodium 40 MG DAILY 07/03 0900 AC 07/04 IV 0818 Sodium Chloride 1,000 ML Q20H 07/04 0815 DC 07/04 IV 0826 Results Last 48 Hrs of Labs/Mics: Laboratory Tests 07/04/18 0607: Anion Gap 8, Estimated GFR > 60, BUN/Creatinine Ratio 32.0 H, Magnesium 1.7 07/03/18 1735: Troponin I < 0.01 07/03/18 1255: Troponin I < 0.01 Recent Imaging Studies: Persantine sestamibi stress test: Decreased activity apical inferior wall on stress images improves on resting images suspicious for mild stress-induced myocardial ischemia. Normal overall wall motion and normal ejection fraction. Assessment/Plan Assessment/Plan Assessment: 1. Type 2 diabetes mellitus 2. Chest pain, ruled out for myocardial infarctionossible unstable angina 3. Abnormal nuclear stress test suggestive of mild inferoapical ischemia. Normal LVEF. 4. Evidence of possible old inferior infarct on EKG 5. Hypertension Plan: * Transfer to [facility] for cardiac catheterization with Dr. Higgins * Continue aspirin and statin * Continue metoprolol Continue telemetry? Yes
--- NOTE | 2018-07-05 16:46 | ECHOCARDIOGRAM REPORT ---
CECIL VALENTE Age: 67 : 1950 Gender: F Exam Date: 07/04/2018 19:51 Exam Location: [address] Ht (in): 63 Wt (lb): 208 BSA: 2.09 BP: 130 / 72 Ordering Physician: Tyra Cobian MD Referring Physician: Florentino Robb MD Technologist: Ellie Hong [facility] Room Number: 181 Indications: Chest pain Rhythm: Sinus Technical Quality: Good FINDINGS Left Ventricle Normal size left ventricle. Mild concentric left ventricular hypertrophy. Normal left ventricular ejection fraction visually estimated at >60%. No obvious regional wall motion abnormalities. Abnormal relaxation filling pattern of the left ventricle for age (stage 1 diastolic dysfunction). Right Ventricle Normal right ventricular size and function. Right Atrium Normal right atrial size. Left Atrium Mild left atrial dilatation. Mitral Valve Mild mitral annular calcification. Mitral valve thickened. No mitral stenosis. No mitral regurgitation. Aortic Valve Aortic valve mildly thickened. No aortic stenosis. Trace aortic regurgitation. Tricuspid Valve Tricuspid valve not well visualized, grossly normal. Mild tricuspid regurgitation. No evidence of pulmonary hypertension. Pulmonic Valve Pulmonic valve not well visualized, grossly normal. Mild pulmonic regurgitation. Pericardium No pericardial effusion. Great Vessels Normal size aortic root. CONCLUSIONS Normal size left ventricle. Mild concentric left ventricular hypertrophy. Normal left ventricular ejection fraction visually estimated at > 60%. Abnormal relaxation filling pattern of the left ventricle for age (stage 1 diastolic dysfunction). Mild left atrial dilatation. Trace aortic regurgitation. Mild tricuspid regurgitation. Mild pulmonic regurgitation. Florentino Robb M.D. (Electronically Signed) Final Date: 05 July 2018 16:40 MEASUREMENTS (Male / Female) Normal Values 2D ECHO LV Diastolic Diameter PLAX 3.1 cm 4.2 - 5.9 / 3.9 - 5.3 cm LV Systolic Diameter PLAX 1.7 cm 2.1 - 4.0 cm LV Fractional Shortening PLAX 45.2 % 25 - 46 % LV Ejection Fraction 2D Teich 77.9 % IVS Diastolic Thickness 1.4 cm LVPW Diastolic Thickness 1.4 cm LV Relative Wall Thickness 0.9 RV Internal Dim ED PLAX 3.1 cm 1.9 - 3.8 cm LVOT Diameter 2.0 cm Aortic Root Diameter 2.7 cm LA Systolic Diameter LX 3.6 cm 3.0 - 4.0 / 2.7 - 3.8 cm LA Volume 34.0 cm 18 - 58 / 22 - 52 cm Ascending Aorta Diameter 3.7 cm DOPPLER AV Peak Velocity 110.0 cm/s AV Peak Gradient 4.8 mmHg AV Mean Velocity 77.3 cm/s AV Mean Gradient 3.0 mmHg AV Velocity Time Integral 23.4 cm LVOT Peak Velocity 80.5 cm/s LVOT Peak Gradient 2.6 mmHg LVOT Mean Velocity 47.4 cm/s LVOT Mean Gradient 1.0 mmHg LVOT Velocity Time Integral 16.4 cm LVOT Stroke Volume 51.5 cm AV Area Cont Eq vti 2.2 cm AV Area Cont Eq pk 2.3 cm MV Peak Velocity 117.0 cm/s MV Peak Gradient 5.5 mmHg MV Mean Velocity 57.3 cm/s MV Mean Gradient 2.0 mmHg Mitral E Point Velocity 51.3 cm/s Mitral A Point Velocity 103.0 cm/s Mitral E to A Ratio 0.5 MV PHT Velocity 69.5 cm/s MV Deceleration [place] 220.0 cm/s MV Pressure Half Time 94.8 ms MV Area PHT 2.3 cm MV Deceleration Time 222.0 ms TR Peak Velocity 202.0 cm/s TR Peak Gradient 16.3 mmHg Right Atrial Pressure 5.0 mmHg Pulmonary Artery Systolic Pressure 21.3 mmHg Right Ventricular Systolic Pressure 21.3 mmHg PV Peak Velocity 99.3 cm/s PV Peak Gradient 3.9 mmHg PV Mean Velocity 64.2 cm/s PV Mean Gradient 2.0 mmHg PV Velocity Time Integral 18.5 cm LV E' Lateral Velocity 5.3 cm/s Mitral E to LV E' Lateral Ratio 9.6 LV E' Septal Velocity 4.2 cm/s Mitral E to LV E' Septal Ratio 12.1
== END 2018-07-05 10:25 | disposition short-term general hospital (02) ==
LOC: ERH 05:52 → ERHI 07:30 → 1NO 07:30 → ENRESERV 08:27 → ENTRNSPT 10:12 → CMPTRNSPT 10:27 → 1NO 10:32 → ENPENDDIS 07-05 09:39 → 1NO 07-05 10:25
PROVIDERS: Emergency Medicine
DX: I24.9 Acute ischemic heart disease, unspecified (principal); I10 Essential (primary) hypertension; Z79.82 Long term (current) use of aspirin; Z85.42 Personal history of malignant neoplasm of other parts of uterus; E66.9 Obesity, unspecified; Z91.19 Patient's noncompliance with other medical treatment and regimen; E11.9 Type 2 diabetes mellitus without complications; Z79.4 Long term (current) use of insulin; E78.1 Pure hyperglyceridemia; E55.9 Vitamin D deficiency, unspecified; M85.80 Other specified disorders of bone density and structure, unspecified site; M17.11 Unilateral primary osteoarthritis, right knee
CPT/HCPCS: 36415; 36592; 71045; 78452; 82436; 93005; 93010; 93016; 93017; 93306; 96361; 96372; 96374; 96375; 96376; A9502; G0378; J1245; J1650; J7042